=== PATIENT | female | born 1985 | race Caucasian/White ===

== ENCOUNTER 2018-08-13 12:42 | Emergency (ER) | payer OTHER, SELFPAY ==
[2018-08-13 12:50] VITALS: BP 118/74; PULSE 100; RESP 23; TEMP 37.5; O2SAT 100
--- NOTE | 2018-08-13 13:03 | DI.CT_ITS ---
SYMPTOMS/DIAGNOSIS: LEFT NECK PAIN, RECENT JUGULAR THROMBUS, HEADACHE CTA OF THE NECK: CT angiography was performed with multi slice acquisition and multi planar and 3D reconstruction. CT angiography of the neck was performed. There are no priors for comparison. The visualized portions of the thoracic arch are unremarkable. The common carotid arteries are unremarkable. No evidence of dissection, occlusion or significant stenosis. The external carotid arteries are unremarkable without evidence of occlusion or significant stenosis. The internal carotid arteries are unremarkable without evidence of dissection, occlusion or significant stenosis. The vertebral arteries and basilar artery are unremarkable without evidence of occlusion, dissection or significant stenosis. The venous system in the neck is unremarkable. No filling defects are seen to suggest thrombus. The parotid and submandibular glands are unremarkable. No significant cervical adenopathy is present. The visualized paranasal sinuses are clear. The mastoid air cells are well pneumatized. The cervical spine is grossly unremarkable. IMPRESSION: No evidence of vascular injury in the neck. The findings were discussed with the Emergency Department on the date of the examination.
--- NOTE | 2018-08-13 13:06 | W.ED.GENAD ---
Discharge Plan Disposition Patient Disposition: HOME Condition: Stable Discharge Details Chief Complaint: Nk/Back Pain Clinical Impression: Neck pain on left side Primary Care Provider: Mellisa Bowers ED Provider: Caleb Browne Home Meds and New Rx's Prescriptions: Continued medroxyprogesterone 2.5 mg Tablet 2.5 mg PO BID RF: 0 Femring 0.1 mg/24 hr Ring 1 vag ring VAGINAL [id number] RF: 0 metoprolol tartrate 25 mg Tablet 25 mg PO BID RF: 0 duloxetine 30 mg Capsule,Delayed Release(Dr/Ec) 30 mg PO BID RF: 0 Discharge Instructions Instructions: Neck Pain (ED) Additional Instructions: Home to rest today. May use warm moist heat to area to reduce discomfort. Follow-up with rheumatology as planned. Begin previously prescribed steroids. Continue regular medications. Medical Decision Making 33-year-old female presents with left anterior neck pain over days time. She states is similar to when she had a transient left jugular thrombus that resolved on its own and was not treated. She states that she had follow-up with neurology at [facility] and is currently seeing rheumatology as per my review of systems. She is afebrile and well-appearing, mildly anxious on exam. IV placed, labs obtained, patient given fluid bolus and 50 mg of ketorolac. She has a normal CBC, chemistries that are reassuring but do note slightly elevated total bili of 1.4, otherwise unremarkable. CT scan of the neck with contrast does not reveal any acute findings and normal filling of both arterial and venous vessels. Patient was prescribed a burst of steroid by her neurologist office and will begin that today. Discussed with her that there is no clear evidence of underlying infection, occlusion of a blood vessel or mass. She understands return precautions. She stable for outpatient management and will follow up with her nuclear worker technician to clinic as planned next wieek. Lab Data Lab results reviewed: Yes I reviewed the patient's lab results. Laboratory Results - last 24 hr 08/13/18 08/13/18 08/13/18 13:15 13:15 13:15 WBC 8.49 RBC 4.44 Hgb 14.2 Hct 40.8 MCV 91.9 MCH 32.0 MCHC 34.8 RDW 11.9 Plt Count 252 MPV 9.9 Immature Gran % 0.1 Neutrophils % 66.4 Lymphocytes % 24.6 Monocytes % 8.2 Eosinophils % 0.5 Basophils % 0.2 Absolute Neutrophils 5.63 Absolute Lymphocytes 2.09 Absolute Monocytes 0.70 Absolute Eosinophils 0.04 Absolute Basophils 0.02 PT 10.2 INR 1.0 APTT 24.8 Sodium 139 Potassium 3.7 Chloride 101 Carbon Dioxide 29.7 Anion Gap 8.3 BUN 8 Creatinine 0.70 Estimated GFR/1.73 m2 >= 60.00 Glucose 92 Calcium 9.1 Total Bilirubin 1.4 H AST 16 ALT 25 Alkaline Phosphatase 54 Total Protein 8.1 Albumin 4.4 HPI General Mode of arrival: ambulatory. Date/Time Provider Initiated Documentation: 08/13/18 12:46. Limitations to Documentation: no limitations. Information obtained by: patient. History of Present Illness 33 year old F presents to the emergency department with the chief complaint of Left neck pain, similar to previous., described as moderate and similar to prior episodes, Quality is described as dull, and is localized to the neck and left. Patient neck. Patient started experiencing this day(s) and it has been constant. No relieving factors improve symptom(s), No exacerbating factors reported . Patient notes headaches; denies cough and fever/chills. Related Data Home Medications Medication Instructions Recorded Confirmed Femring 1 vag ring VAGINAL [id number] 08/13/18 08/13/18 duloxetine 30 mg PO BID 08/13/18 08/13/18 medroxyprogesterone 2.5 mg PO BID 08/13/18 08/13/18 metoprolol tartrate 25 mg PO BID 08/13/18 08/13/18 Allergies Allergy/AdvReac Type Severity Reaction Status Date / Time lidocaine AdvReac Severe Cardiac Unverified 08/13/18 13:04 Dysrythmia prochlorperazine AdvReac Severe Contraindic Unverified 08/13/18 13:03 [From Compazine] ated azithromycin AdvReac Intermediate Nausea Unverified 08/13/18 13:04 General Stated Complaint: Nk/Back Pain RADHA: 2 Review of Systems Review of Systems Patient states 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 She reports joint pain and ache with subjective fevers over weeks time for which she is following with rheumatology and has also seen neurology for what she states was previous left jugular thrombus that was not treated and resolved on its own. 8 systems reviewed and otherwise negative [facility] Social History Smoking and Tabacco status: Never Exam Narrative Exam Narrative: GEN: awake, alert, oriented 3. Pleasant, well groomed, interactive. HEAD: Normocephalic, atraumatic ENT: Mucous membranes moist, oropharynx unremarkable, External ear exam unremarkable EYES: PERRL, EOMI NECK: Full ROM, no JHONNY, no menigismus. Tender left anterior neck along musculature. No bruits CHEST/RESP: Nontender, clear to auscultation bilateral, no wheeze/rhonchi/rales CARDIOVASCULAR: RRR, no murmur, rub kristian. 2+ Rad pulse bilateral ABDOMEN: Soft, nontender, no mass. +Bowel sounds EXT: Full ROM, no edema, no rash Neuro: Grossly normal neurologic exam, conversant, interactive. Psych: Speech fluent, thoughts congruent, affect anxious Course Vital Signs Temperature 37.5 C 08/13/18 12:50 Pulse 100 H 08/13/18 12:50 Respiratory Rate 23 08/13/18 12:50 Blood Pressure 118/74 08/13/18 12:50 Pulse Oximetry 100 08/13/18 12:50 Temperature 37.5 C 08/13/18 12:50 Temperature Source Temporal Artery Scan 08/13/18 12:50 Pulse 100 H 08/13/18 12:50 Respiratory Rate 23 08/13/18 12:50 Respiratory Effort Non-Labored 08/13/18 12:55 Blood Pressure 118/74 08/13/18 12:50 Blood Pressure Position Sitting 08/13/18 12:50 Pulse Oximetry 100 08/13/18 12:50 Oxygen Delivery Method Room Air 08/13/18 12:50 Oxygen Flow Rate 0 08/13/18 12:50 Pain Level 9 08/13/18 12:50
--- NOTE | 2018-08-13 13:09 | ED.GENADUL_ITS ---
Discharge Plan Disposition Patient Disposition: HOME Condition: Stable Discharge Details Chief Complaint: Nk/Back Pain Clinical Impression: Neck pain on left side Primary Care Provider: Mellisa Bowers ED Provider: Caleb Browne Home Meds and New Rx's Prescriptions: Continued medroxyprogesterone 2.5 mg Tablet 2.5 mg PO BID RF: 0 Femring 0.1 mg/24 hr Ring 1 vag ring VAGINAL [id number] RF: 0 metoprolol tartrate 25 mg Tablet 25 mg PO BID RF: 0 duloxetine 30 mg Capsule,Delayed Release(Dr/Ec) 30 mg PO BID RF: 0 Discharge Instructions Instructions: Neck Pain (ED) Additional Instructions: Home to rest today. May use warm moist heat to area to reduce discomfort. Follow-up with rheumatology as planned. Begin previously prescribed steroids. Continue regular medications. Medical Decision Making 33-year-old female presents with left anterior neck pain over days time. She states is similar to when she had a transient left jugular thrombus that resolved on its own and was not treated. She states that she had follow-up with neurology at [facility] and is currently seeing rheumatology as per my review of systems. She is afebrile and well-appearing, mildly anxious on exam. IV placed, labs obtained, patient given fluid bolus and 50 mg of ketorolac. She has a normal CBC, chemistries that are reassuring but do note slightly elevated total bili of 1.4, otherwise unremarkable. CT scan of the neck with contrast does not reveal any acute findings and normal filling of both arterial and venous vessels. Patient was prescribed a burst of steroid by her neurologist office and will begin that today. Discussed with her that there is no clear evidence of underlying infection, occlusion of a blood vessel or mass. She understands return precautions. She stable for outpatient management and will follow up with her deputy sheriff chief to clinic as planned next wieek. Lab Data Lab results reviewed: Yes I reviewed the patient's lab results. Laboratory Results - last 24 hr 08/13/18 08/13/18 08/13/18 13:15 13:15 13:15 WBC 8.49 RBC 4.44 Hgb 14.2 Hct 40.8 MCV 91.9 MCH 32.0 MCHC 34.8 RDW 11.9 Plt Count 252 MPV 9.9 Immature Gran % 0.1 Neutrophils % 66.4 Lymphocytes % 24.6 Monocytes % 8.2 Eosinophils % 0.5 Basophils % 0.2 Absolute Neutrophils 5.63 Absolute Lymphocytes 2.09 Absolute Monocytes 0.70 Absolute Eosinophils 0.04 Absolute Basophils 0.02 PT 10.2 INR 1.0 APTT 24.8 Sodium 139 Potassium 3.7 Chloride 101 Carbon Dioxide 29.7 Anion Gap 8.3 BUN 8 Creatinine 0.70 Estimated GFR/1.73 m2 >= 60.00 Glucose 92 Calcium 9.1 Total Bilirubin 1.4 H AST 16 ALT 25 Alkaline Phosphatase 54 Total Protein 8.1 Albumin 4.4 HPI General Mode of arrival: ambulatory . Date/Time Provider Initiated Documentation: 08/13/18 12:46 . Limitations to Documentation: no limitations . Information obtained by: patient . History of Present Illness 33 year old F presents to the emergency department with the chief complaint of Left neck pain, similar to previous., described as moderate and similar to prior episodes, Quality is described as dull, and is localized to the neck and left. Patient neck. Patient started experiencing this day(s) and it has been constant. No relieving factors improve symptom(s), No exacerbating factors reported . Patient notes headaches; denies cough and fever/chills. Related Data Home Medications Medication Instructions Recorded Confirmed Femring 1 vag ring VAGINAL [id number] 08/13/18 08/13/18 duloxetine 30 mg PO BID 08/13/18 08/13/18 medroxyprogesterone 2.5 mg PO BID 08/13/18 08/13/18 metoprolol tartrate 25 mg PO BID 08/13/18 08/13/18 Allergies Allergy/AdvReac Type Severity Reaction Status Date / Time lidocaine AdvReac Severe Cardiac Unverified 08/13/18 13:04 Dysrythmia prochlorperazine AdvReac Severe Contraindic Unverified 08/13/18 13:03 [From Compazine] ated azithromycin AdvReac Intermediate Nausea Unverified 08/13/18 13:04 General Stated Complaint: Nk/Back Pain RADHA: 2 Review of Systems Review of Systems Patient states 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 She reports joint pain and ache with subjective fevers over weeks time for which she is following with rheumatology and has also seen neurology for what she states was previous left jugular thrombus that was not treated and resolved on its own. 8 systems reviewed and otherwise negative [facility] Social History Smoking and Tabacco status: Never Exam Narrative Exam Narrative: GEN: awake, alert, oriented 3. Pleasant, well groomed, interactive. HEAD: Normocephalic, atraumatic ENT: Mucous membranes moist, oropharynx unremarkable, External ear exam unremarkable EYES: PERRL, EOMI NECK: Full ROM, no JHONNY, no menigismus. Tender left anterior neck along musculature. No bruits CHEST/RESP: Nontender, clear to auscultation bilateral, no wheeze/rhonchi/rales CARDIOVASCULAR: RRR, no murmur, rub kristian. 2+ Rad pulse bilateral ABDOMEN: Soft, nontender, no mass. +Bowel sounds EXT: Full ROM, no edema, no rash Neuro: Grossly normal neurologic exam, conversant, interactive. Psych: Speech fluent, thoughts congruent, affect anxious Course Vital Signs Temperature 37.5 C 08/13/18 12:50 Pulse 100 H 08/13/18 12:50 Respiratory Rate 23 08/13/18 12:50 Blood Pressure 118/74 08/13/18 12:50 Pulse Oximetry 100 08/13/18 12:50 Temperature 37.5 C 08/13/18 12:50 Temperature Source Temporal Artery Scan 08/13/18 12:50 Pulse 100 H 08/13/18 12:50 Respiratory Rate 23 08/13/18 12:50 Respiratory Effort Non-Labored 08/13/18 12:55 Blood Pressure 118/74 08/13/18 12:50 Blood Pressure Position Sitting 08/13/18 12:50 Pulse Oximetry 100 08/13/18 12:50 Oxygen Delivery Method Room Air 08/13/18 12:50 Oxygen Flow Rate 0 08/13/18 12:50 Pain Level 9 08/13/18 12:50
[2018-08-13] MEDS: Ketorolac 15 MG/ML VIAL IVP (13:16)
[2018-08-13 13:21] LABS: Abs Immature Grans 0.01 k/cumm (0.0-0.09); Absolute Basophil Count 0.02 k/cumm (0.0-0.2); Absolute Eosinophil Count 0.04 k/cumm (0.0-0.7); Absolute Lymphocyte Count 2.09 k/cumm (1.2-3.4); Absolute Neutrophil Count 5.63 k/cumm (1.2-6.7); Basophils % 0.2; Eosinophils % 0.5; HCT 40.8 % (36.0-46.0); HGB 14.2 g/dL (12.0-15.5); Immature Grans % 0.1; Lymphocytes % 24.6; Mean Corp. HGB Concentration 34.8 g/dL (32.0-36.0); Mean Corpuscular Volume 91.9 fL (80-95); Mean Platelet Volume 9.9 fL (8.0-11.0); Monocytes % 8.2; Neutrophils % 66.4; Platelet Count 252 x1000/uL (130-400); RBC 4.44 m/cumm (4.00-5.20); RBC Distribution Width 11.9 % (11.7-14.6); White Blood Cell Count 8.49 k/cumm (4.4-10.8)
[2018-08-13 13:44] LABS: ALT 25 U/L (12-78); AST 16 U/L (15-37); Albumin 4.4 g/dL (3.4-5.0); Alkaline Phosphatase 54 U/L (46-116); Anion Gap 8.3 mmol/L (3-11); BUN 8 mg/dL (7-18); Bilirubin, Total 1.4 mg/dL (0.2-1.0); CO2 29.7 mmol/L (21.0-32.0); Calcium 9.1 mg/dL (8.5-10.1); Chloride 101 mmol/L (98-107); Glucose 92 mg/dL (70-100); Potassium 3.7 mmol/L (3.5-5.1); Sodium 139 mmol/L (136-145); Total Protein 8.1 g/dL (6.4-8.2)
[2018-08-13 13:58] LABS: PTT Activated 24.8 sec (21.0-31.4); Prothrombin Time 10.2 sec (9.3-11.0)
[2018-08-13] MEDS: Omnipaque 350 MG/ML 100 ML BTL IJ (14:21)
[2018-08-13] MEDS: Normal Saline 1,000 ML 1000 ML IV (14:21)
[2018-08-13] MEDS: Normal Saline Flush 10 ML SYR IVP (14:22)
[2018-08-13 14:36] VITALS: PULSE 85; RESP 15; O2SAT 100
[2018-08-13 14:40] VITALS: PULSE 85; RESP 15; O2SAT 100
[2018-08-13 14:50] VITALS: PULSE 71; RESP 10; O2SAT 100
[2018-08-13 15:00] VITALS: PULSE 75; RESP 12; O2SAT 100
[2018-08-13 15:26] VITALS: BP 118/74; PULSE 100; RESP 12; TEMP 37.5; O2SAT 100
== END 2018-08-13 15:30 | disposition home or self-care (01) ==
PROVIDERS: Emergency Provider Emergency Medicine; PCP Internal Medicine
DX: M54.2 Cervicalgia (principal); Z86.79 Personal history of other diseases of the circulatory system
CPT/HCPCS: 36415; 70498; 80053; 96361; 96375; 99284; 85025; 85610; 85730; 99283; J1885; J3490

== ENCOUNTER 2018-08-27 16:20 | Outpatient (REF) | payer OTHER, SELFPAY ==
[2018-08-31 00:18] LABS: Calprotectin <15.6 mcg/g
== END 2018-08-27 16:40 ==
LOC: LBN 16:20
PROVIDERS: PCP Internal Medicine; Visit Provider Internal Medicine
DX: M19.90 Unspecified osteoarthritis, unspecified site (principal); G89.29 Other chronic pain; M25.571 Pain in right ankle and joints of right foot; M79.18 Myalgia, other site; Z79.899 Other long term (current) drug therapy; M25.572 Pain in left ankle and joints of left foot; M25.561 Pain in right knee; M25.562 Pain in left knee
CPT/HCPCS: 83993

== ENCOUNTER 2019-12-19 03:25 | Outpatient (CLI) | payer OTHER, SELFPAY ==
[2019-12-19 09:36] LABS: HGB 14.1 g/dL (12.0-15.5); Mean Corp. HGB Concentration 33.6 g/dL (32.0-36.0); Mean Corpuscular Hemoglobin 31.3 pg (27.0-33.0); Mean Corpuscular Volume 93.1 fL (80-95); Mean Platelet Volume 9.3 fL (8.0-11.0); Platelet Count 281 x1000/uL (130-400); RBC 4.51 m/cumm (4.00-5.20); RBC Distribution Width 11.7 % (11.7-14.6); White Blood Cell Count 5.12 k/cumm (4.4-10.8)
[2019-12-19 10:26] LABS: ALT 33 U/L (14-59); AST 17 U/L (15-37); Albumin 4.3 g/dL (3.4-5.0); Alkaline Phosphatase 44 U/L (46-116); Anion Gap 6.3 mmol/L (3-11); BUN 13 mg/dL (7-18); Bilirubin, Total 1.2 mg/dL (0.2-1.0); CO2 28.7 mmol/L (21.0-32.0); CREATININE 0.88 mg/dL (0.55-1.02); Calcium 9.3 mg/dL (8.5-10.1); Calculated LDL 157 mg/dL (<100); Chloride 103 mmol/L (98-107); Cholesterol 224 mg/dL (<200); Glucose 90 mg/dL (74-106); HDL Cholesterol 46 mg/dL (40-60); Magnesium 2.1 mg/dL (1.8-2.4); Potassium 4.5 mmol/L (3.5-5.1); Sodium 138 mmol/L (136-145); TSH (W/Ref FT4) 0.63 uIU/mL (0.36-3.74); Total Protein 7.5 g/dL (6.4-8.2); Triglyceride 105 mg/dL (<150)
[2019-12-22 10:27] LABS: FSH 36.8 mIU/mL (See Note)
== END 2019-12-19 03:45 ==
PROVIDERS: PCP Student in an Organized Health Care Education/Training Program; Visit Provider Student in an Organized Health Care Education/Training Program
DX: D68.0 Von Willebrand disease (principal); R53.83 Other fatigue; Z86.2 Personal history of diseases of the blood and blood-forming organs and certain disorders involving the immune mechanism; E86.0 Dehydration; K31.9 Disease of stomach and duodenum, unspecified; R10.13 Epigastric pain; G43.709 Chronic migraine without aura, not intractable, without status migrainosus; G44.52 New daily persistent headache (NDPH); Z13.220 Encounter for screening for lipoid disorders
CPT/HCPCS: 36415; 80053; 80061; 85027; 83001; 83735; 84443

== ENCOUNTER 2020-01-20 01:09 | Outpatient (CLI) | payer OTHER, SELFPAY ==
--- NOTE | 2020-01-20 14:26 | DI.RAD_ITS ---
EXAM: XR CHEST 2V PA LATERAL CLINICAL HISTORY: chillS w/o fever, hx of TB,R68.83,Z22.7 TECHNIQUE: 2D digital imaging was performed. COMPARISON: No exams were available for comparison FINDINGS: MEDIASTINUM: Normal. HEART: Normal. PULMONARY VASCULATURE: Normal. LUNGS: Clear. PLEURAL SPACE: No pleural effusion or pneumothorax. BONE:Normal. IMPRESSION: Negative chest x-ray. No evidence active or old healed tuberculosis. DATA REPOSITORY: RADIATION DOSE DELIVERED:
== END 2020-01-20 01:29 ==
PROVIDERS: PCP Student in an Organized Health Care Education/Training Program; Visit Provider Student in an Organized Health Care Education/Training Program
DX: R68.83 Chills (without fever) (principal); Z86.11 Personal history of tuberculosis
CPT/HCPCS: 71046

== ENCOUNTER 2020-01-20 02:33 | Outpatient (CLI) | payer OTHER, SELFPAY ==
[2020-01-20 14:47] LABS: Abs Immature Grans 0.01 10^3/uL (0.0-0.06); Absolute Basophil Count 0.03 10^3/uL (0.0-0.2); Absolute Eosinophil Count 0.07 10^3/uL (0.0-0.7); Absolute Lymphocyte Count 2.71 10^3/uL (1.2-3.4); Absolute Neutrophil Count 3.32 10^3/uL (1.2-6.7); Basophils % 0.5; Eosinophils % 1.1; HCT 39.4 % (36.0-46.0); HGB 13.4 g/dL (11.2-15.7); Immature Grans % 0.2; Lymphocytes % 40.8; MCH 31.4 pg (27.0-33.0); MCV 92.3 fL (80-95); Monocytes % 7.5; Neutrophils % 49.9; Nucleated RBC 0 %; Platelet Count 278 10^3/uL (130-400); RBC 4.27 10^6/uL (3.93-5.22); RDW 11.6 % (11.7-14.6); RDW-SD 39.2 fL; WBC 6.64 10^3/uL (4.4-10.8)
[2020-01-20 15:46] LABS: ALT 33 U/L (14-59); AST 18 U/L (15-37); Albumin 4.4 g/dL (3.4-5.0); Alkaline Phosphatase 43 U/L (46-116); Anion Gap 10.1 mmol/L (3-11); BUN 13 mg/dL (7-18); Bilirubin, Total 0.9 mg/dL (0.2-1.0); C-Reactive Protein 0.12 mg/dL (0.0-0.3); CO2 28.9 mmol/L (21.0-32.0); CREATININE 0.73 mg/dL (0.55-1.02); Chloride 101 mmol/L (98-107); Glucose 89 mg/dL (74-106); Sodium 140 mmol/L (136-145); Total Protein 7.5 g/dL (6.4-8.2)
[2020-01-20 16:09] LABS: ESR 12 mm/hr (0-20)
[2020-01-22 04:52] LABS: Vitamin D 25 Total 32.3 ng/ml (30-100)
== END 2020-01-20 02:53 ==
PROVIDERS: PCP Student in an Organized Health Care Education/Training Program; Visit Provider Student in an Organized Health Care Education/Training Program
DX: R68.83 Chills (without fever) (principal); E28.39 Other primary ovarian failure
CPT/HCPCS: 36415; 80053; 82306; 85652; 85025; 86140